=== PATIENT | female | born 1995 | race Caucasian/White ===

== ENCOUNTER → 2016-04-19 | Outpatient (CLI) | payer OTHER ==
--- NOTE | 2016-04-19 15:45 | US ---
EXAMINATION TYPE: US OB anatomy transabd DATE OF EXAM: 04/19/2016 3:05 PM COMPARISON: NONE HISTORY: LGA TECHNIQUE: OBTA EXAM MEASUREMENTS: GESTATIONAL AGE / DATING Physician Established: (19 weeks/1 days) EDC: 09/12/2016 Dates by LMP: unknown Dates by First Scan: CHILD STUDY TEAM DIRECTOR Dates by Current Scan for: (19 weeks/0 days) EDC: 09/13/2016 SURVEY IUP: Single PLACENTA: Posterior PREVIA: No previa ESTEFANI: 12.1 cm Normal CERVICAL LENGTH (transabdominal: norm > 3.0cm): 3.6 cm BIOMETRY PRESENTATION: Vertex LIE: Longitudinal BPD: 4.4 cm 19 weeks / 1 days HC: 16.0 cm 18 weeks / 5 days AC: 14.1 cm 19 weeks / 3 days FL: 3.0 cm 19 weeks / 2 days ESTIMATED WEIGHT IN GRAMS: 286 grams ESTIMATED WEIGHT IN LBS/OZS: 0 lbs. 10 oz. WEIGHT PERCENTAGE BASED ON ESTABLISHED DATE: 56 % HC/AC: 1.1 normal FL/AC: 21.4 normal HEART RATE: 168 bpm RHYTHM: Normal ANATOMY SEEN (within normal limits): * Lateral Vent (< 1 cm) 0.5cm * Cisterna Magna (< 1.1 cm) 0.4cm * Nuchal Fold (< 0.6 cm) 0.3cm * Cerebellum (varies with age) 1.9cm Choroid Plexus (bilateral) Midline Falx Cavus Septi Pellucidi Four Chamber Heart Outflow tracts: LVOT/RVOT Stomach Situs Nose / Lips Diaphragm Kidneys (bilateral) Bladder Cord Insert Three Vessel Cord Longitudinal Spine Transverse Spine Arms (bilateral) Legs (bilateral) IMPRESSION: Viable 19w0d fetus seen and appears wnl
[2016-04-19 15:53] LABS: CHCM 34.3; HCT 37.1 % (34.0-46.0); HDW 3.01; HGB 12.5 gm/dL (11.4-16.0); MCH 29.6 pg (25.0-35.0); MCHC 33.7 g/dL (31.0-37.0); Mean Platelet Volume 7.2; RBC 4.22 m/uL (3.80-5.40); RDW 13.1 % (11.5-15.5); WBC 7.4 k/uL (3.8-10.6)
[2016-04-19 16:18] LABS: Glucose 76 mg/dL (74-99); Non-African American GFR(MDRD) >60 (>60 ml/min/1.73 sqM)
[2016-04-19 16:47] LABS: Hepatitis B Surface Ag Index 0.07
[2016-04-20 07:26] LABS: HIV-1/HIV-2 Ab Screen NONREAC (NON REAC)
== END | disposition home or self-care (01) ==
LOC: RADUSWWP 13:48
PROVIDERS: ATTEND Obstetrics & Gynecology
DX: O36.62X0 Maternal care for excessive fetal growth, second trimester, not applicable or unspecified (principal); O26.812 Pregnancy related exhaustion and fatigue, second trimester; Z3A.19 19 weeks gestation of pregnancy
CPT/HCPCS: 36415; 76811; 82565; 82947; 85027; 86762; 86780; 86850; 86900; 86901; 87340; 87389

== ENCOUNTER → 2016-06-10 | Outpatient (CLI) | payer OTHER ==
[2016-06-10 11:10] LABS: CH 30.3; HCT 34.8 % (34.0-46.0); HDW 2.84; HGB 11.4 gm/dL (11.4-16.0); MCH 30.3 pg (25.0-35.0); MCHC 32.8 g/dL (31.0-37.0); MCV 92.6 fL (80.0-100.0); Mean Platelet Volume 6.7; RBC 3.76 m/uL (3.80-5.40); WBC 8.5 k/uL (3.8-10.6)
== END ==
LOC: LABWHC1 09:48
PROVIDERS: ATTEND Obstetrics & Gynecology
DX: Z34.92 Encounter for supervision of normal pregnancy, unspecified, second trimester (principal); Z3A.00 Weeks of gestation of pregnancy not specified
CPT/HCPCS: 36415; 82950; 85027

== ENCOUNTER 2016-07-01 20:24 | Outpatient (CLI) | payer OTHER ==
[2016-07-01 20:57] VITALS: RESP 16
[2016-07-01 21:53] VITALS: BP 115/67; PULSE 85; TEMP 97.1
--- NOTE | 2016-07-01 23:20 | P.MSEPDOC ---
Presenting Problems - Arrival Data Date of Arrival on Unit: 07/01/16 Time of Arrival on Unit: 20:25 Mode of Transport: Ambulatory - Complaint OB-Reason for Admission/Chief Complaint: Pain Medical History - Information : 2 Para: 0 Term: 0 : 0 Abortions: Spontaneous or Elective: 0 Number of Living Children: 0 - Gestational Age Expected Date of Delivery: 09/12/16 Gestational Age by JOSE (wks/days): 29 Weeks and 4 Days Review of Systems - Review of Systems Constitutional: No problems Breast: No problems ENT: No problems Cardiovascular: No problems Respiratory: No problems Gastrointestinal: No problems Genitourinary: No problems Musculoskeletal: No problems Neurological: No problems Skin: No problems Vital Signs - Temperature Temperature: 97.1 F Temperature Source: Temporal Artery Scan - Pulse Pulse Oximetery Pulse Rate: 85 Pulse Assessment Method: Automatic Cuff - Respirations Respiratory Rate: 16 Oxygen Delivery Method: Room Air O2 Sat by Pulse Oximetry: 97 - Blood Pressure Right Arm Blood Pressure: 115/67 Blood Pressure Mean: 83 Blood Pressure Source: Automatic Cuff Medical Screen Scoring (Pre) - Cervical Exam Dilation: Exam Deferred Effacement: Exam Deferred Membranes: Intact - Uterine Contractions Frequency: N/A Duration: N/A Intensity: N/A - Maternal Vital Signs Maternal Temperature: N/A Signs of Preeclampsia: N/A Maternal Respirations: N/A - Maternal Trauma Maternal Trauma: N/A - Assessment Heart Rate - NICHD Category: Category I (Normal) = 0 NST: Reactive Position: N/A Station: N/A - Total Score Total Score (Pre): 0 - Level of Risk Level of Risk: Low (0-5) Physician Notification (Pre) - Physician Notified Physician Notified Date: 07/01/16 Physician Notified Time: 21:02 Spoke With: Dr Sidney Blue Order Received: Yes Medical Screen Scoring (Post) - Cervical Exam Dilation: 0 cm = 0 Membranes: Intact - Uterine Contractions Frequency: > 5 minutes apart = 1 Duration: > 40 seconds = 2 - Maternal Vital Signs Maternal Temperature: N/A Signs of Preeclampsia: N/A Maternal Respirations: N/A - Maternal Trauma Maternal Trauma: N/A - Assessment NST: Reactive Position: N/A Station: N/A - Total Score Total Score (Post): 3 - Post Treatment Level of Risk Post Treatment Level of Risk: Low (0-5) Physician Notification (Post) - Physician Notified Physician Notified Date: 07/01/16 Physician Notified Time: 21:40 Physician/Practitioner Notified:: Dr Little Spoke With: Dr Little New Order Received: No Disposition - Disposition OB Disposition: Discharge to home Discharge Date: 07/01/16 Discharge Time: 21:45 I agree with the RN Medical Screening Exam: Yes Risk & Benefit of care provided described in d/c instruction: Yes Diagnosis: PELVIC AND PERINEAL PAIN
== END 2016-07-01 21:45 | disposition home or self-care (01) ==
LOC: FBPOP 20:24
PROVIDERS: ATTEND Obstetrics & Gynecology
DX: O26.893 Other specified pregnancy related conditions, third trimester (principal); R10.2 Pelvic and perineal pain; Z3A.29 29 weeks gestation of pregnancy
CPT/HCPCS: 59025; 99213

== ENCOUNTER 2016-09-16 05:47 | Inpatient (IN) | payer OTHER ==
[2016-09-16] MEDS ORDERED: CARBOPROST TROMETHAMINE 250 MCG/ML 1 ML AMP IM PRN (05:58)
[2016-09-16] MEDS ORDERED: OXYTOCIN 20 UNITS/1000 ML NS 1,000 ML IV SCH ×2 (05:58→11:31)
[2016-09-16] MEDS ORDERED: METHYLERGONOVINE 0.2 MG/ML 1 ML AMP IM PRN (05:58)
[2016-09-16] MEDS ORDERED: TERBUTALINE 1 MG/ML VIAL SQ PRN (05:58)
[2016-09-16] MEDS ORDERED: OXYTOCIN 10 UNIT/ML 1 ML VIAL IM PRN (05:58)
[2016-09-16] MEDS ORDERED: LIDOCAINE 1% (PF) 10 MG/ML (30 ML SDV) SQ PRN (05:58)
[2016-09-16] MEDS: LACTATED RINGERS 1,000 ML IV SCH ×2 (06:00→08:28)
--- NOTE | 2016-09-16 06:09 | P.HPOB ---
History of Present Illness H&P Date: 09/16/16 Chief Complaint: Postdates induction. This patient is a pleasant 21-year-old 2 para 0 female estimated date of confinement 09/12/2016 estimated gestational age 40-4/7 who presents to labor and delivery for requested postdates induction of labor. Patient's care has been uncomplicated, with the exception of late to seek care. Patient had her first visit at approximately 16 weeks. Review of Systems Constitutional: Denies chills, Denies fever Ears, nose, mouth and throat: Denies headache, Denies sore throat Cardiovascular: Denies chest pain, Denies shortness of breath Respiratory: Denies cough Gastrointestinal: Reports heartburn Genitourinary: Reports Menstruation: Reports amenorrhea Musculoskeletal: Denies myalgias Integumentary: Denies pruritus, Denies rash Neurological: Denies numbness, Denies weakness Past Medical History Past Medical History: No Reported History History of Any Multi-Drug Resistant Organisms: None Reported Additional Past Surgical History / Comment(s): Elective Past Anesthesia/Blood Transfusion Reactions: No Reported Reaction Past Psychological History: Depression Smoking Status: Never smoker Past Alcohol Use History: None Reported Past Drug Use History: None Reported Medications and Allergies Home Medications Medication Instructions Recorded Confirmed Type No Known Home Medications [No 09/16/16 09/16/16 History Known Home Medications] Allergies Allergy/AdvReac Type Severity Reaction Status Date / Time No Known Allergies Allergy Verified 09/16/16 05:57 Exam - Vital Signs Vital signs: Intake and Output 09/15/16 09/15/16 09/16/16 14:59 22:59 06:59 Other: Weight 85.275 kg Patient Weight 09/16/16 06:59 Weight 85.275 kg - OBG Physical Exam Abdomen: bowel sounds normal, no diffuse tenderness, no bruit present, no guarding noted, no hepatomegaly, no splenomegaly, no mass Vulva: both: normal Vagina: normal moisture, no discharge Cervix: Cervix is 3 cm dilated 80% effaced and -1 station. Artificial rupture membranes shows moderate meconium-stained fluid Uterus: enlarged (Fundal height is consistent with a term .) Results blood work shows she is A positive, rubella immune, RPR nonreactive, HIV nonreactive, hepatitis B negative, ultrasounds have shown normal anatomy Glucola was normal, group B strep was negative. Assessment and Plan (1) Post-dates Narrative/Plan: This is a pleasant 21-year-old 2 para 0 female 40-4/7 weeks' gestation presenting for postdates induction of labor. Plan is induction of labor and anticipate vaginal delivery. Patient did have meconium-stained fluid on rupture membranes and I discussed management of this with the patient. Status: Acute (2) Meconium in amniotic fluid affecting management of mother Status: Acute
[2016-09-16 06:14] VITALS: BMI 32.2
[2016-09-16 06:18] LABS: Basophils % (A) 0 %; CH 28.9; CHCM 33.2; Eosinophils # (A) 0.1 k/uL (0-0.7); Eosinophils % (A) 1 %; HCT 38.5 % (34.0-46.0); HDW 2.82; HGB 12.9 gm/dL (11.4-16.0); Luc # (Auto) 0.21; Luc % (Auto) 2; Lymphocytes # (A) 1.9 k/uL (1.0-4.8); Lymphocytes % (A) 18 %; MCH 29.3 pg (25.0-35.0); MCHC 33.6 g/dL (31.0-37.0); MCV 87.5 fL (80.0-100.0); Mean Platelet Volume 6.9; Monocytes # (A) 0.6 k/uL (0-1.0); Monocytes % (A) 6 %; Neutrophils % (A) 74 %; RDW 14.6 % (11.5-15.5); WBC 10.9 k/uL (3.8-10.6); WBC (Perox) 11.03
[2016-09-16] MEDS ORDERED: SODIUM CHLORIDE 0.9% 100 ML BAG ONE (07:26)
[2016-09-16] MEDS ORDERED: BUPIVACAINE (PF) 0.25% 30 ML VIAL ONE (07:26)
[2016-09-16] MEDS ORDERED: fentaNYL (PF) 50 MCG/ML 5 ML AMP ONE (07:26)
[2016-09-16] MEDS ORDERED: WITCH HAZEL 1 EACH MED..PAD TOPICAL PRN (11:31)
[2016-09-16] MEDS ORDERED: diphenhydrAMINE 50 MG/ML 1 ML VIAL IVP PRN (11:31)
[2016-09-16] MEDS ORDERED: BENZOCAINE/MENTHOL SPRAY 1 GM/SPRAY AEROSOL TOPICAL PRN (11:31)
[2016-09-16] MEDS ORDERED: ZOLPIDEM 5 MG TAB PO PRN (11:31)
[2016-09-16] MEDS ORDERED: BISACODYL 10 MG SUPP RECTAL PRN (11:31)
[2016-09-16] MEDS ORDERED: HYDROCORTISONE 2.5% RECTAL CREAM 30 GM TUBE RECTAL PRN (11:31)
[2016-09-16] MEDS ORDERED: diphenhydrAMINE 25 MG CAP PO PRN (11:31)
[2016-09-16] MEDS ORDERED: LANOLIN CREAM 5 GM TUBE TOPICAL PRN (11:31)
[2016-09-16] MEDS ORDERED: ACETAMINOPHEN TAB 325 MG TAB PO PRN (11:31)
[2016-09-16] MEDS ORDERED: SIMETHICONE 80 MG CHEWABLE PO PRN (11:31)
[2016-09-16] MEDS ORDERED: Acetaminophen-Codeine 300-30mg TAB PO PRN ×2 (11:31)
--- NOTE | 2016-09-16 12:12 | P.PROBDLV ---
Vaginal Delivery Note - . Vaginal Delivery Note: Normal vaginal delivery viable male Apgars 7 and 9 at 1112 hrs. Please see dictated H&P for intimate details of this patient's admission. Brief summary is a pleasant 21-year-old 2 para 0 female 40-4/7 weeks gestation admitted to labor and delivery for postdates induction of labor. On admission patient is 3 cm dilated has artificial rupture membranes for moderate to thin meconium-stained fluid. heart tones are reassuring. Pitocin augmentation of labor is done at this time. Patient does request an epidural for pain control and she quickly gets to complete. She pushes for approximately 1 hour pushes the head to the perineum. Posterior perineum is infiltrated with 1% lidocaine and a midline episiotomy is made. We then have controlled delivery of infant's head over the perineum. There is no evidence of a nuchal cord. With gentle downward traction we then have deliver the anterior and posterior shoulder and rest this infant's body. This has spontaneous respirations and good cry. Delivery time is 1112 hrs. and Apgars are 7 and 9. The nurse operations coordinator was present for delivery. After delivery of the infant the umbilical cord is doubly clamped and cut appears to be trivascular. The infant is in late on the mother's abdomen. Placenta spontaneously delivered intact. Estimated blood loss is 100 mL. Inspection of perineum shows a second-degree laceration which repaired with 3-0 Vicryl usual fashion good reapproximation is noted. and mother are stable delivery room. All counts are correct 3. There are no complications.
[2016-09-16] MEDS: IBUPROFEN 600 MG TAB PO PRN (18:05)
[2016-09-16] MEDS: SENNOSIDES-DOCUSATE SODIUM 1 EACH TAB PO SCH (20:38)
--- NOTE | 2016-09-16 20:55 | P.PN ---
Progress Note - Text Was notified of patient having intermittent chest pain and therefore I did recommend evaluation. Patient seen and evaluated resting comfortably in bed with her laying down or sitting up she voices no complaints of chest pain she relates that the only time she has is when she was up walking around going to the nursery. She did wish sharp and stabbing but resolved with sitting. There is no evidence of DVT, no evidence of PE based on symptomatology and certainly she is pulse ox 97% she has no pain or problems with deep inspiration heart is regular and I hear no extra sounds. It appears more that she has musculoskeletal initiation was placed from what they described as a deep Suha position and she did push for a little over an hour. There is however no reproducible pain along her chest wall and will at least for now ordered a GI cocktail and see if that does relieve her symptoms she did take Motrin about an hour and a half ago but does not request any further pain medicine despite being offered Tylenol 3. Assessment status post vaginal delivery with intermittent chest pain. Plan we will continue observational care for now. I had considered EKG, chest x-ray, ABG, however on visualizing the patient and evaluated her she is sitting in bed calmly smiling actually improperly and has no dyspnea or chest pain at all at this time. There is no pain in her calves and I can find no other source of the musculoskeletal at this time. Should she continue to have symptoms will plan to order more testing as needed.
[2016-09-16] MEDS ORDERED: MAG HYDROX/AL HYDROX/SIMETH 30 ML, HYOSCYAMINE ELIXIR 10 ML, CIMETIDINE HCL 300 MG PO STA ×3 (21:00)
--- NOTE | 2016-09-17 06:05 | P.PNOBGVD ---
Subjective - Subjective Patient reports: Reports appetite normal, Reports voiding normally, Reports pain well controlled, Reports ambulating normally : doing well Objective - Latest Vital Signs Latest vital signs: Vital Signs Temp Pulse Resp BP Pulse Ox 09/16/16 23:53 98.2 F 87 16 92/86 97 09/16/16 20:00 98.6 F 103 H 16 136/84 97 09/16/16 15:48 97.7 F 84 16 118/67 09/16/16 13:25 97 16 124/66 09/16/16 13:02 100 16 130/83 09/16/16 12:20 89 16 116/69 09/16/16 12:05 91 16 122/73 09/16/16 11:50 89 16 122/69 98 09/16/16 11:36 95 16 123/68 98 09/16/16 11:21 97.6 F 103 H 16 137/68 97 09/16/16 06:10 97 F L 90 16 141/89 100 Intake and Output 09/16/16 09/16/16 09/17/16 14:59 22:59 06:59 Output Total 800 Balance -800 Output: Urine 800 Straight 800 Other: # Voids 1 1 2 - Exam Lungs: bilateral: normal Chest: Normal S1, Normal S2 Extremities: Present: normal Abdomen: Present: normal appearance, soft Uterus: Present: normal, firm - Labs Labs: Abnormal Lab Results - Last 24 Hours (Table) 09/16/16 Range/Units 05:59 WBC 10.9 H (3.8-10.6) k/uL Neutrophils # 8.0 H (1.3-7.7) k/uL Assessment and Plan (1) Post-dates Narrative/Plan: day #1. Patient is resting without complaints. Patient did have an episode last evening of chest discomfort however this resolved with antacids and there is no evidence of any acute processes going on. Vital signs are stable she is afebrile. Uterus is firm nontender she's having normal lochia. My impression this is a normal course. Plan is to continue routine care and discharge home tomorrow. Current Visit: Yes Status: Acute Code(s): O48.0 - POST-TERM SNOMED Code(s): 32227289 (2) Meconium in amniotic fluid affecting management of mother Current Visit: Yes Status: Acute Code(s): O36.8990 - MATERNAL CARE FOR OTH PROBLEMS, UNSP TRIMESTER, UNSP SNOMED Code(s): 46034829
[2016-09-17] MEDS: SENNOSIDES-DOCUSATE SODIUM 1 EACH TAB PO SCH ×2 (09:02→20:15)
[2016-09-17] MEDS: IBUPROFEN 600 MG TAB PO PRN ×2 (09:02→20:14)
--- NOTE | 2016-09-18 06:12 | P.PNOBGVD ---
Subjective - Subjective Patient reports: Reports appetite normal, Reports voiding normally, Reports pain well controlled, Reports ambulating normally : doing well Objective - Latest Vital Signs Latest vital signs: Vital Signs Temp Pulse Resp BP Pulse Ox 09/18/16 00:00 98.6 F 96 16 121/74 98 09/17/16 16:00 97.9 F 72 16 115/59 97 09/17/16 08:00 98.5 F 100 16 133/75 - Exam Lungs: bilateral: normal Chest: Normal S1, Normal S2 Extremities: Present: normal Abdomen: Present: normal appearance, soft Uterus: Present: normal, firm Assessment and Plan (1) Post-dates Narrative/Plan: day #2. Patient is resting without complaints. Vital signs are stable and she is afebrile. Uterus is firm nontender she's having normal lochia. My impression is this is a normal course. Plan is to continue routine care discharge home later today. Current Visit: Yes Status: Acute Code(s): O48.0 - POST-TERM SNOMED Code(s): 22545146 (2) Meconium in amniotic fluid affecting management of mother Current Visit: Yes Status: Acute Code(s): O36.8990 - MATERNAL CARE FOR OTH PROBLEMS, UNSP TRIMESTER, UNSP SNOMED Code(s): 70853080
--- NOTE | 2016-09-18 06:18 | P.DS ---
Providers Date of admission: 09/16/16 05:47 Expected date of discharge: 09/18/16 Attending physician: Jese Sevilla Primary care physician: Stated None - Discharge Diagnosis(es) (1) Post-dates Current Visit: Yes Status: Acute (2) Meconium in amniotic fluid affecting management of mother Current Visit: Yes Status: Acute Hospital Course: Please see dictated H&P for intimate details of this patient's admission. Brief summary this pleasant 21-year-old 2 para 0 female 40-4/7 weeks gestation admitted to labor and delivery for postdates induction of labor. Patient is admitted she is uncomplicated induction of labor goes on to have a vaginal delivery viable male infant. her to patient's felt be stable for discharge home follow up with me in 6 weeks. Procedures: Induction of labor and normal vaginal delivery Patient Condition at Discharge: Good Plan - Discharge Summary New Discharge Prescriptions: New Acetaminophen-Codeine 300-30mg [Tylenol w/codeine #3] 1 - 2 each PO Q4HR PRN #30 tab PRN Reason: Mild Pain exceeding Tylenol Ibuprofen [Motrin] 600 mg PO Q6HR PRN #40 tab PRN Reason: Mild Pain Or Fever >= 100.5 Discharge Medication List Acetaminophen-Codeine 300-30mg [Tylenol w/codeine #3] 1 - 2 each PO Q4HR PRN # 30 tab 09/18/16 [Rx] Ibuprofen [Motrin] 600 mg PO Q6HR PRN #40 tab 09/18/16 [Rx] Follow up Appointment(s)/Referral(s): Jese Sevilla MD [STAFF PHYSICIAN] - 10/29/16 9:45 am Patient Instructions/Handouts: Vaginal Delivery (DC) Activity/Diet/Wound Care/Special Instructions: No intercourse or anything per vagina for 6 weeks. Please call if any fever, chills, excessive vaginal bleeding, and/or abdominal pain. Discharge Disposition: HOME SELF-CARE
[2016-09-18] MEDS: SENNOSIDES-DOCUSATE SODIUM 1 EACH TAB PO SCH (08:15)
[2016-09-18 08:55] VITALS: PULSE 97; RESP 14; TEMP 98.2
[2016-09-18 12:05] VITALS: BP 121/76
== END 2016-09-18 14:55 | disposition home or self-care (01) | DRG 775 ==
LOC: 4FBP 05:47
PROVIDERS: ADMIT Obstetrics & Gynecology; ATTEND Obstetrics & Gynecology
PROC: 10E0XZZ Delivery of Products of Conception, External Approach (ICD-10-PCS; principal; 2016-09-16)
PROC: 0KQM0ZZ Repair Perineum Muscle, Open Approach (ICD-10-PCS; 2016-09-16)
PROC: 0KQM0ZZ Repair Perineum Muscle, Open Approach (ICD-10-PCS; 2016-09-16)
PROC: 0W8NXZZ Division of Female Perineum, External Approach (ICD-10-PCS; 2016-09-16)
PROC: 10907ZC Drainage of Amniotic Fluid, Therapeutic from Products of Conception, Via Natural or Artificial Opening (ICD-10-PCS; 2016-09-16)
DX: O48.0 Post-term pregnancy (principal); O99.344 Other mental disorders complicating childbirth; F32.9 Major depressive disorder, single episode, unspecified; O77.0 Labor and delivery complicated by meconium in amniotic fluid; O70.1 Second degree perineal laceration during delivery; Z37.0 Single live birth; Z3A.40 40 weeks gestation of pregnancy
CPT/HCPCS: 85025; 88307

== ENCOUNTER → 2017-11-14 | Outpatient (CLI) | payer OTHER ==
[2017-11-14 12:03] LABS: HCT 38.5 % (34.0-46.0); HGB 12.6 gm/dL (11.4-16.0); MCHC 32.7 g/dL (31.0-37.0); MCV 88.8 fL (80.0-100.0); Mean Platelet Volume 5.7; Platelet Count 371 k/uL (150-450); RBC 4.34 m/uL (3.80-5.40); RDW 13.4 % (11.5-15.5); WBC 9.7 k/uL (3.8-10.6)
[2017-11-14 12:27] LABS: Glucose 90 mg/dL (74-99)
--- NOTE | 2017-11-14 16:17 | US ---
EXAMINATION TYPE: Transabdominal DATE OF EXAM: 05/20/17 COMPARISON: NONE CLINICAL HISTORY: Z36 CONFIRM DATES. Confirm Dates EXAM PERFORMED: Transabdominal (TA) EXAM MEASUREMENTS: GESTATIONAL AGE / DATING Physician Established: (11 weeks/4 days) EDC: 06/01/2018 Dates by LMP: (11 weeks/4 days) EDC: 06/01/2018 Dates by First Scan: No prior Dates by Current Scan for: (9 weeks/3 days) EDC: 06/16/2018 MATERNAL ANATOMY Uterus: 12.5 x 5.2 x 8.2 cm Right Ovary: 3.7 x 2.7 x 1.8 cm Left Ovary: 2.6 x 2.0 x 1.8 cm Post CDS / Adnexa: wnl Presence of free fluid: No Presence of corpus luteal cyst: Right Ovary= 1.7 x 1.5 x 1.7 cm Presence of subchorionic bleed: No GESTATION / SURVEY CRL: 2.7 cm (9 weeks/3 days) MSD: wnl Yolk Sac (normal less than 6mm): 4mm Heart Rate: 170 bpm Rhythm: Normal IUP: Viable IUP Date of LMP: 08/25/2017 Single, viable IUP/ No abnormality visualized at this time IMPRESSION: 1. Single intrauterine gestation estimated at 9 weeks 3 days gestation based on the crown-rump length . Cardiac activity measures 170 bpm. 2. Estimated date of confinement is 06/16/2018. Correlate this with her physician established EDC of .
== END ==
LOC: RADUSWWP 10:56
PROVIDERS: ATTEND Obstetrics & Gynecology
DX: Z36.9 Encounter for antenatal screening, unspecified (principal); Z34.81 Encounter for supervision of other normal pregnancy, first trimester; Z3A.09 9 weeks gestation of pregnancy
CPT/HCPCS: 36415; 76801; 82565; 82947; 85027; 86762; 86780; 86850; 86900; 86901; 87340

== ENCOUNTER → 2018-02-25 | Outpatient (CLI) | payer OTHER ==
[2018-02-25 13:09] LABS: HCT 37.4 % (34.0-46.0); HGB 12.4 gm/dL (11.4-16.0); MCH 29.2 pg (25.0-35.0); MCHC 33.2 g/dL (31.0-37.0); Mean Platelet Volume 6.3; Platelet Count 373 k/uL (150-450); RBC 4.25 m/uL (3.80-5.40); RDW 14.2 % (11.5-15.5); WBC 11.8 k/uL (3.8-10.6)
== END ==
LOC: LABWHC1 11:33
PROVIDERS: ATTEND Obstetrics & Gynecology
DX: Z34.82 Encounter for supervision of other normal pregnancy, second trimester (principal); Z3A.00 Weeks of gestation of pregnancy not specified
CPT/HCPCS: 36415; 82950; 85027

== ENCOUNTER 2018-06-09 19:55 | Inpatient (IN) | payer OTHER ==
[2018-06-09] MEDS ORDERED: METHYLERGONOVINE 0.2 MG/ML 1 ML AMP IM PRN (20:13)
[2018-06-09] MEDS ORDERED: CARBOPROST TROMETHAMINE 250 MCG/ML 1 ML AMP IM PRN (20:13)
[2018-06-09] MEDS ORDERED: OXYTOCIN 10 UNIT/ML 1 ML VIAL IM PRN (20:13)
[2018-06-09] MEDS ORDERED: TERBUTALINE 1 MG/ML VIAL SQ PRN (20:13)
[2018-06-09] MEDS ORDERED: LIDOCAINE 0.5% (PF) 5 MG/ML (50 ML SDV) SQ PRN (20:13)
[2018-06-09] MEDS ORDERED: LACTATED RINGERS 1,000 ML IV SCH ×2 (20:15→20:30)
[2018-06-09 20:43] VITALS: BMI 35.3
[2018-06-09] MEDS ORDERED: fentaNYL (PF) 50 MCG/ML 5 ML AMP ONE (21:01)
[2018-06-09] MEDS ORDERED: ROPIVACAINE 5MG/ML 20ML VIAL ONE (21:01)
[2018-06-09] MEDS ORDERED: SODIUM CHLORIDE 0.9% 100 ML BAG ONE (21:01)
--- NOTE | 2018-06-09 21:09 | P.HPOB ---
History of Present Illness H&P Date: 06/09/18 Chief Complaint: Contractions This is a 22-year-old female 3 para 1 with an estimated date of confinement of 06/16/2018, estimated gestational age of 39-0/7 weeks, who presents with complaints of contractions that began earlier today but became stronger a few hours before admission. She denies any rupture of membranes. course has been uncomplicated per patient. She was scheduled for induction tomorrow morning. labs: Random glucose-90 Hemoglobin-12.6 Hepatitis B surface antigen-negative nonreactive Rubella-immune Syphilis antibody-nonreactive Blood type-A+ Antibody screen-negative Obstetrical ultrasound-normal anatomy One hour Glucola-129 B strep coccus-negative Obstetrical history: . History of 1 vaginal delivery at term with no complications. Also a history of a miscarriage. Review of Systems Constitutional: Denies chills, Denies fever Eyes: denies blurred vision, denies pain Ears, nose, mouth and throat: Denies headache, Denies sore throat Cardiovascular: Denies chest pain, Denies shortness of breath Respiratory: Denies cough Gastrointestinal: Reports abdominal pain (Contractions) Genitourinary: Reports pelvic pain, Reports Musculoskeletal: Reports low back pain Integumentary: Denies pruritus, Denies rash Neurological: Denies numbness, Denies weakness Psychiatric: Reports anxiety, Reports depression Past Medical History Past Medical History: No Reported History 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 History of Any Multi-Drug Resistant Organisms: None Reported Additional Past Surgical History / Comment(s): Elective , surgery for repair of broken nose in 2009 Past Anesthesia/Blood Transfusion Reactions: No Reported Reaction Past Psychological History: Anxiety, Depression Additional Psychological History / Comment(s): not medicated Smoking Status: Never smoker Past Alcohol Use History: None Reported Past Drug Use History: None Reported - Past Family History Mother Family Medical History: Hypertension, Thyroid Disorder Additional Family Medical History / Comment(s): hyperthyroid Medications and Allergies Home Medications Medication Instructions Recorded Confirmed Type Pnv No.95/Ferrous Fum/Folic AC 1 cap PO DAILY 06/09/18 06/09/18 History [ Multivitamin Tablet] Allergies Allergy/AdvReac Type Severity Reaction Status Date / Time No Known Allergies Allergy Verified 06/09/18 20:11 Exam Osteopathic Statement: *. No significant issues noted on an osteopathic structural exam other than those noted in the History and Physical/Consult. Vital Signs Temp Pulse Resp BP Pulse Ox 06/09/18 20:38 97.3 F L 91 16 134/89 100 Intake and Output 06/09/18 06/09/18 06/09/18 06:59 14:59 22:59 Other: Weight 93.44 kg HEENT: Within normal limits Heart: Regular rate and rhythm Lungs: Clear to auscultation bilaterally Abdomen: Cervix: 7 cm/90%/-1 heart tones: Reactive Contractions: Every 2-3 minutes Extremities: Negative Homans Assessment and Plan (1) 39 weeks gestation of Current Visit: Yes Status: Acute Code(s): Z3A.39 - 39 WEEKS GESTATION OF SNOMED Code(s): 22695679 (2) Normal labor and delivery Current Visit: Yes Status: Acute Code(s): O80 - ENCOUNTER FOR FULL-TERM UNCOMPLICATED DELIVERY SNOMED Code(s): 03992204 Plan: Admission for active labor. Expectant management. Epidural anesthesia.
[2018-06-09 21:10] LABS: Anisocytosis Slight; Basophils % (A) 0 %; Eosinophils % (A) 0 %; HCT 35.9 % (34.0-46.0); HGB 11.7 gm/dL (11.4-16.0); Lymphocytes # (A) 1.6 k/uL (1.0-4.8); Lymphocytes % (A) 13 %; MCH 27.1 pg (25.0-35.0); MCHC 32.6 g/dL (31.0-37.0); MCV 83.3 fL (80.0-100.0); Mean Platelet Volume 6.9; Monocytes # (A) 0.6 k/uL (0-1.0); Monocytes % (A) 5 %; Neutrophils # (A) 9.3 k/uL (1.3-7.7); Neutrophils % (A) 79 %; Platelet Count 349 k/uL (150-450); Poikilocytosis Slight; RBC 4.31 m/uL (3.80-5.40); RDW 16.3 % (11.5-15.5); WBC 11.8 k/uL (3.8-10.6)
--- NOTE | 2018-06-09 22:59 | P.PROBDLV ---
Vaginal Delivery Note - . Vaginal Delivery Note: The patient progressed to complete dilation after epidural anesthesia and artificial rupture membranes with clear fluid noted. Once reaching complete dilation, she began pushing. 's head came to a crown. With one further push, the 's head delivered across the perineum and a left occiput anterior lie followed by the anterior shoulder. Nuchal cord times one was reduced around the body with delivery and the infant was placed on mother's abdomen. Nose and mouth are bulb suctioned. Brisk cry was noted immediately. Cord was clamped and cut and infant was taken to warmer for evaluation. A viable female was noted with scores of 9 at 1 minute and 9 at 5 minutes and infant weight was 8 lbs. 0 oz. Placenta delivered shortly thereafter, intact, with a three-vessel cord. Uterus contracted well after oxytocin was given and uterine massage was carried out. Inspection of the perineum revealed a second-degree perineal laceration. This area was anesthetized with 1% lidocaine and then sutured with 3-0 Vicryl suture in the usual multilayer fashion. Estimated blood loss is approximately 100 mL's. Both mother and infant are in stable condition.
[2018-06-09] MEDS ORDERED: ACETAMINOPHEN TAB 325 MG TAB PO PRN (23:04)
[2018-06-09] MEDS ORDERED: ZOLPIDEM 5 MG TAB PO PRN (23:04)
[2018-06-09] MEDS ORDERED: LANOLIN CREAM 5 GM TUBE TOPICAL PRN (23:04)
[2018-06-09] MEDS ORDERED: HYDROCORTISONE 2.5% RECTAL CREAM 30 GM TUBE RECTAL PRN (23:04)
[2018-06-09] MEDS ORDERED: BENZOCAINE/MENTHOL SPRAY 1 GM/SPRAY AEROSOL TOPICAL PRN (23:04)
[2018-06-09] MEDS ORDERED: ACETAMINOPHEN ORAL SUSP 160 MG/5 ML CUP PO PRN (23:04)
[2018-06-09] MEDS ORDERED: diphenhydrAMINE 25 MG CAP PO PRN (23:04)
[2018-06-09] MEDS ORDERED: WITCH HAZEL 1 EACH MED..PAD TOPICAL PRN (23:04)
[2018-06-09] MEDS ORDERED: diphenhydrAMINE 50 MG/ML 1 ML VIAL IVP PRN ×2 (23:04)
[2018-06-09] MEDS ORDERED: diphenhydrAMINE 50 MG CAP PO PRN (23:04)
[2018-06-09] MEDS ORDERED: OXYTOCIN 20 UNITS/1000 ML NS 1,000 ML IV SCH (23:04)
[2018-06-09] MEDS ORDERED: SIMETHICONE 80 MG CHEWABLE PO PRN (23:04)
[2018-06-10 07:23] LABS: Anisocytosis Slight; Basophils % (A) 0 %; Eosinophils % (A) 0 %; HCT 31.3 % (34.0-46.0); HGB 10.3 gm/dL (11.4-16.0); Lymphocytes # (A) 1.8 k/uL (1.0-4.8); Lymphocytes % (A) 12 %; MCH 27.9 pg (25.0-35.0); MCV 84.3 fL (80.0-100.0); Mean Platelet Volume 6.8; Monocytes # (A) 1.1 k/uL (0-1.0); Monocytes % (A) 7 %; Neutrophils # (A) 11.8 k/uL (1.3-7.7); Neutrophils % (A) 78 %; Platelet Count 268 k/uL (150-450); RBC 3.71 m/uL (3.80-5.40); RDW 16.1 % (11.5-15.5); WBC 15.1 k/uL (3.8-10.6)
--- NOTE | 2018-06-10 07:57 | P.MSEPDOC ---
Presenting Problems - Arrival Data Date of Arrival on Unit: 06/09/18 Time of Arrival on Unit: 20:15 Mode of Transport: Wheelchair - Complaint OB-Reason for Admission/Chief Complaint: Possible Onset of Labor Medical History - Information : 3 Para: 1 Term: 1 : 0 Abortions: Spontaneous or Elective: 1 Number of Living Children: 1 - Gestational Age Gestational Age by JOSE (wks/days): 39 Weeks and 0 Days Review of Systems - Review of Systems Constitutional: No problems Breast: No problems ENT: No problems Cardiovascular: No problems Respiratory: No problems Gastrointestinal: No problems Genitourinary: No problems Musculoskeletal: No problems Neurological: No problems Skin: No problems Vital Signs - Temperature Temperature: 97.9 F Temperature Source: Oral - Pulse Right Pulse Rate: 103 Pulse Assessment Method: Automatic Cuff - Respirations Respiratory Rate: 14 O2 Sat by Pulse Oximetry: 100 - Blood Pressure Right Arm Blood Pressure: 98/52 Blood Pressure Mean: 67 Blood Pressure Source: Automatic Cuff Medical Screen Scoring (Pre) - Cervical Exam Dilation: 4-7 cm = 2 Effacement: More than 50% = 2 Membranes: Intact - Uterine Contractions Frequency: > or = 36 weeks =2 Duration: > 40 seconds = 2 Intensity: Contraction palpated strong = 1 - Maternal Vital Signs Maternal Temperature: N/A Maternal Blood Pressure: N/A Signs of Preeclampsia: N/A Maternal Respirations: N/A - Pain Assessment Pain Location and Character: Abdomen Pain Scale Used: Numeric (1 - 10) Pain Intensity: 8 Pain Management Goal: 3 Pain Description: *Acute, Cramping, Squeezing, Tightness Pain Radiation Location: back Pain Frequency: Intermittent Pain Duration: 1 Pain Duration Units: Hours Pain Behavior: Vocalization Pain Aggravating Factors: Contractions Pharmacological Interventions: PRN Medication Non-Pharmacological Interventions: Position/Reposition - Assessment Baseline FHR: 130 Heart Rate - NICHD Category: Category I (Normal) = 0 NST: Reactive Position: N/A Station: N/A - Total Score Total Score (Pre): 9 - Level of Risk Level of Risk: Medium (6-9) Physician Notification (Pre) - Physician Notified Physician Notified Date: 06/09/18 Physician Notified Time: 20:11 Physician/Practitioner Notifed:: Dr Aquino - Notification Comment Comment: reported on pts c/o cntrx, SVE, vitals, fhts, cntrx pattern, hx quick delivery, GBS-. orders to admit, start IV, get epidural Disposition - Disposition OB Disposition: Admit Transferred to:: st 9 I agree with the RN Medical Screening Exam: Yes Risk & Benefit of care provided described in d/c instruction: Yes Diagnosis: ENCOUNTER FOR FULL-TERM UNCOMPLICATED DELIVERY
[2018-06-10] MEDS: SENNOSIDES-DOCUSATE SODIUM 1 EACH TAB PO SCH ×2 (08:38→21:08)
[2018-06-10] MEDS: IBUPROFEN 600 MG TAB PO PRN ×2 (08:38→15:57)
--- NOTE | 2018-06-10 16:38 | P.PNOBGVD ---
Subjective - Subjective Patient reports: Reports appetite normal, Reports voiding normally, Reports pain well controlled, Reports ambulating normally : doing well Objective - Latest Vital Signs Latest vital signs: Vital Signs Temp Pulse Resp BP Pulse Ox 06/10/18 15:52 98.2 F 112 H 16 126/82 06/10/18 11:47 98 F 104 H 16 130/89 06/10/18 08:00 98.6 F 106 H 16 130/76 06/10/18 07:57 97.9 F 103 H 14 98/52 100 06/10/18 04:00 97.9 F 103 H 14 98/52 100 06/10/18 01:03 97.0 F L 110 H 16 128/59 06/10/18 00:33 97.0 F L 108 H 16 132/60 98 06/10/18 00:03 98 16 126/64 06/09/18 23:48 101 H 16 124/60 06/09/18 23:33 97.0 F L 113 H 16 127/61 06/09/18 23:18 107 H 16 124/60 06/09/18 23:03 97.6 F 118 H 16 130/83 06/09/18 20:38 97.3 F L 91 16 134/89 100 06/09/18 20:13 97.3 F L 91 18 134/89 100 Intake and Output 06/10/18 06/10/18 06/10/18 06:59 14:59 22:59 Intake Total 1600 Balance 1600 Intake: Intake, IV Titration 1600 Amount Lactated Ringers 1,000 ml 600 @ 125 mls/hr IV .Q8H [facility]CIAL Rx#:[id number] Oxytocin 20 Units/1000 ml 1000 Ns 1,000 ml @ Per Protocol IV .Q0M MARCIAL Rx#: [id number] Other: # Voids 1 1 - Exam Lungs: bilateral: normal Chest: Normal S1, Normal S2 Extremities: Present: normal Abdomen: Present: normal appearance, soft Uterus: Present: normal, firm - Labs Labs: Abnormal Lab Results - Last 24 Hours (Table) 06/09/18 06/10/18 Range/Units 20:46 04:37 WBC 11.8 H 15.1 H (3.8-10.6) k/uL RBC 3.71 L (3.80-5.40) m/uL Hgb 10.3 L (11.4-16.0) gm/dL Hct 31.3 L (34.0-46.0) % RDW 16.3 H 16.1 H (11.5-15.5) % Neutrophils # 9.3 H 11.8 H (1.3-7.7) k/uL Monocytes # 1.1 H (0-1.0) k/uL Assessment and Plan Assessment: day #1. Patient is resting without complaints. VSS and she is afebrile. Plan is to continue routine care. (1) Normal labor and delivery Current Visit: Yes Status: Acute Code(s): O80 - ENCOUNTER FOR FULL-TERM UNCOMPLICATED DELIVERY SNOMED Code(s): 39644073
--- NOTE | 2018-06-11 06:29 | P.PNOBGVD ---
Subjective - Subjective Patient reports: Reports appetite normal, Reports voiding normally, Reports pain well controlled, Reports ambulating normally : doing well Objective - Latest Vital Signs Latest vital signs: Vital Signs Temp Pulse Resp BP Pulse Ox 06/11/18 00:00 98.2 F 107 H 18 128/88 97 06/10/18 15:52 98.2 F 112 H 16 126/82 06/10/18 11:47 98 F 104 H 16 130/89 06/10/18 08:00 98.6 F 106 H 16 130/76 06/10/18 07:57 97.9 F 103 H 14 98/52 100 Intake and Output 06/10/18 06/10/18 06/11/18 14:59 22:59 06:59 Other: # Voids 1 - Exam Lungs: bilateral: normal Chest: Normal S1, Normal S2 Extremities: Present: normal Abdomen: Present: normal appearance, soft Uterus: Present: normal, firm - Labs Labs: Abnormal Lab Results - Last 24 Hours (Table) 06/10/18 Range/Units 04:37 WBC 15.1 H (3.8-10.6) k/uL RBC 3.71 L (3.80-5.40) m/uL Hgb 10.3 L (11.4-16.0) gm/dL Hct 31.3 L (34.0-46.0) % RDW 16.1 H (11.5-15.5) % Neutrophils # 11.8 H (1.3-7.7) k/uL Monocytes # 1.1 H (0-1.0) k/uL Assessment and Plan Assessment: day #2. Patient is resting without complaints wishes to go home. Vital signs are stable she is afebrile. Uterus is firm nontender and she is having normal lochia. My impression this is a normal course. Plan is to continue routine care discharge home later today. (1) Normal labor and delivery Current Visit: Yes Status: Acute Code(s): O80 - ENCOUNTER FOR FULL-TERM UNCOMPLICATED DELIVERY SNOMED Code(s): 37799639
--- NOTE | 2018-06-11 06:30 | P.DS ---
Providers Date of admission: 06/09/18 20:12 Expected date of discharge: 06/11/18 Attending physician: Jese Sevilla Primary care physician: Stated None - Discharge Diagnosis(es) (1) Normal labor and delivery Current Visit: Yes Status: Acute Hospital Course: Please see dictated H&P for intimate details of this patient's admission. Brief summary is a pleasant 22-year-old 3 para 1 female 39 weeks gestation admitted to labor and delivery in active labor. Patient quickly goes on have a vaginal delivery viable female . Please see dictated delivery note. day #1 patient is doing well and on day #2 she is felt to be stable for discharge home follow up with me in 6 weeks. Procedures: Normal spontaneous vaginal delivery Patient Condition at Discharge: Good Plan - Discharge Summary New Discharge Prescriptions: New Ibuprofen [Motrin] 600 mg PO Q6HR PRN #40 tab PRN Reason: Mild Pain Or Fever >= 100.5 No Action Pnv No.95/Ferrous Fum/Folic AC [ Multivitamin Tablet] 1 cap PO DAILY Discharge Medication List Pnv No.95/Ferrous Fum/Folic AC [ Multivitamin Tablet] 1 cap PO DAILY 06/09/18 [History] Ibuprofen [Motrin] 600 mg PO Q6HR PRN #40 tab 06/11/18 [Rx] Follow up Appointment(s)/Referral(s): Jese Sevilla MD [STAFF PHYSICIAN] - 07/20/18 9:45 am Patient Instructions/Handouts: Vaginal Delivery (DC) Activity/Diet/Wound Care/Special Instructions: No intercourse or anything per vagina for 6 weeks. Please call if any fever, chills, excessive vaginal bleeding, and/or abdominal pain. Discharge Disposition: HOME SELF-CARE
[2018-06-11 08:25] VITALS: BP 128/77; PULSE 93; RESP 16; TEMP 98
[2018-06-11] MEDS: SENNOSIDES-DOCUSATE SODIUM 1 EACH TAB PO SCH (08:25)
== END 2018-06-11 12:43 | disposition home or self-care (01) | DRG 807 ==
LOC: FBPOP 19:55 → 4FBP 20:12
PROVIDERS: ADMIT Obstetrics & Gynecology; ATTEND Obstetrics & Gynecology
PROC: 10E0XZZ Delivery of Products of Conception, External Approach (ICD-10-PCS; principal; 2018-06-09)
PROC: 0KQM0ZZ Repair Perineum Muscle, Open Approach (ICD-10-PCS; 2018-06-09)
PROC: 00HU33Z Insertion of Infusion Device into Spinal Canal, Percutaneous Approach (ICD-10-PCS; 2018-06-09)
PROC: 3E0R3BZ Introduction of Anesthetic Agent into Spinal Canal, Percutaneous Approach (ICD-10-PCS; 2018-06-09)
DX: O69.81X0 Labor and delivery complicated by cord around neck, without compression, not applicable or unspecified (principal); Z37.0 Single live birth; O99.344 Other mental disorders complicating childbirth; F32.9 Major depressive disorder, single episode, unspecified; F41.9 Anxiety disorder, unspecified; O70.1 Second degree perineal laceration during delivery; Z3A.39 39 weeks gestation of pregnancy; Z82.49 Family history of ischemic heart disease and other diseases of the circulatory system; Z83.49 Family history of other endocrine, nutritional and metabolic diseases
CPT/HCPCS: 59025; 85025; 86850; 86900; 86901; 99213